=== PATIENT | male | born 1930 | race Caucasian/White ===

== ENCOUNTER 2017-01-12 09:32 | Day surgery (SDC) | payer MEDICARE ==
[~2017-01-12] VITALS: Ht 182.9 cm; Wt 73.9 kg
[~2017-01-12 09:32] MED LIST: AMIO200T33 PO; ASPI81TA27 PO; ATOR20TA50 PO; LEVO75TA6 PO
[2017-01-12] MEDS ORDERED: MIDAZOLAM HCL 1MG/1ML-2 ML VIAL ONE (10:44)
[2017-01-12] MEDS ORDERED: fentaNYL CITRATE 100 MCG/2 ML VL ONE (10:44)
[2017-01-12] MEDS ORDERED: ONDANSETRON HCL 4 MG/2 ML VIAL ONE (10:44)
[2017-01-12] MEDS ORDERED: SODIUM CHLORIDE LOCK 20 ML ONE (10:44)
[2017-01-12] MEDS ORDERED: PROPOFOL 10 MG/ML 20 ML IV ONE (10:44)
[2017-01-12] MEDS ORDERED: ETOMIDATE (2MG/ML) 20ML VIAL IV ONE (10:45)
[2017-01-12] MEDS ORDERED: ROCURONIUM 10MG/ML 10ML VIAL IV ONE (10:45)
[2017-01-12] MEDS ORDERED: LABETALOL HCL 5 MG/ML 4ML SYRINGE IV ONE (13:17)
[2017-01-12] MEDS ORDERED: METOCLOPRAMIDE HCL 5MG/ml INJ 2ml VIAL IV ONE (13:45)
[2017-01-12] MEDS ORDERED: fentaNYL CITRATE 100 MCG/2 ML VL IV ONE (14:00)
[2017-01-12 15:00] VITALS: BP 125/56
== END 2017-01-12 15:00 | disposition home or self-care (01) ==
LOC: SUR 09:32
PROVIDERS: ATTEND Urology
DX: C61 Malignant neoplasm of prostate (principal); N40.1 Benign prostatic hyperplasia with lower urinary tract symptoms; I10 Essential (primary) hypertension; Z88.8 Allergy status to other drugs, medicaments and biological substances; Z88.1 Allergy status to other antibiotic agents; I25.10 Atherosclerotic heart disease of native coronary artery without angina pectoris; I99.8 Other disorder of circulatory system; I49.9 Cardiac arrhythmia, unspecified; I49.3 Ventricular premature depolarization; E03.9 Hypothyroidism, unspecified; F17.210 Nicotine dependence, cigarettes, uncomplicated; E89.0 Postprocedural hypothyroidism
CPT/HCPCS: 52601; 88305; 88341; 88342; J2250; J2405; J2704; J3010; J3490